=== PATIENT | female | born 1945 | race Caucasian/White ===

== ENCOUNTER 2025-02-15 05:50 | Day surgery (SDC) | payer MEDICARE, OTHER, SELFPAY ==
--- NOTE | 2025-02-12 06:40 | EKG_ITS ---
[facility] Test Date: 2025-02-12 Pat Name: KELSI BRISCOE Department: Room: - Gender: Female Dispatcher [employer]: KEVIN : 1945 Requested By: Mikhail Rodriguez Order Number: [id number] Reading MD: Mikhail Rodriguez Measurements Intervals [place] Rate: 55 P: 49 IA: 159 QRS: 105 QRSD: 78 T: 65 QT: 401 QTc: 386 Interpretive Statements SINUS BRADYCARDIA MARKED RIGHT AXIS DEVIATION [QRS AXIS > 100] LOW QRS VOLTAGE IN PRECORDIAL LEADS [QRS DEFLECTION < 1.0 mV IN CHEST LEADS] POSSIBLE RIGHT VENTRICULAR CONDUCTION DELAY [RSR (QR) IN V1/V2] POSSIBLE ANTERIOR MYOCARDIAL INFARCTION , PROBABLY OLD [30 ms Q WAVE IN V3/V4, OR R < 0.2 mV IN V4] No previous ECG available for comparison /[id number]
[2025-02-12 11:49] VITALS: BMI 38.9
[2025-02-12 13:45] LABS: Alanine Aminotransferase 29 U/L (10-49); Albumin, Serum 4.4 gm/dL (3.4-4.8); Albumin/Globulin Ratio 1.8 (1.2-2.2); Alkaline Phosphatase 58 U/L (46-116); Anion Gap 4 (7-16); Aspartate Amino Transferase 25 U/L (0-34); BUN/Creatinine Ratio 21 Ratio (12-20); Bilirubin,Total 0.7 mg/dL (0.3-1.2); Blood Urea Nitrogen 15 mg/dL (9-23); Calcium 9.6 mg/dL (8.3-10.6); Calcium (Corrected) 9.6 mg/dL (8.5-10.1); Carbon Dioxide 28.1 mMol/L (20.0-31.0); Chloride 105 mMol/L (98-107); Creatinine (Component) 0.7 mg/dL (0.6-1.3); Globulin 2.5 gm/dL (2.3-3.5); Glucose 87 mg/dL (74-106); Osmolality,Calculated 273 (275-295); Potassium 3.8 mMol/L (3.4-5.1); Sodium 137 mMol/L (136-145); Total Protein 6.9 gm/dL (5.7-8.2); eGFR > 60 See Note
--- NOTE | 2025-02-12 14:13 | SUR.PREOP ---
Cardiac records reviwed with Dr Rodriguez.
--- NOTE | 2025-02-14 15:06 | SUR.PREOP ---
Voice message left for pt to come in at 0600 tomorrow for surgery.
[2025-02-15] VITALS (8 sets, daily range): BP systolic 133–158; BP diastolic 63–98; PULSE 60–72; RESP 10–17; TEMP 36.5–37.1; O2SAT 94–99; BMI 40.1
[2025-02-15] MEDS: RINGERS LACTATED 1000 ML 1,000 ML 20 ML IV (07:01)
--- NOTE | 2025-02-15 07:43 | SUR.PREOP ---
Patient expressed gratitude for prayer before their procedure.
--- NOTE | 2025-02-15 10:18 | ESOP_ITS ---
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 There is a metal grommet tube posteriorly and inferiorly. The middle ear space was chronically inflamed but the ossicular chain was intact and mobile. The mastoid was very sclerotic with few air cells until deep into the mastoid cavity. Chorda tympani nerve and facial nerve both identified and preserved. Procedure Description Indications: This is a 79-year-old female with chronic ear drainage and pain. She also has hearing loss. CT scan documented chronic mastoiditis. Treatment options were discussed as well as surgical risk occluding bleeding infection hearing loss decreased sense of taste dizziness facial nerve paralysis. Patient understood these and wished to proceed. Anticipated outcomes were discussed as well. Primary goal of surgery was to resolve the infection. Patient was marked and shaved in the preoperative setting and transferred to the operative suite where she was anesthetized intubated and sterilely draped after placing the facial nerve monitoring electrodes in usual fashion. Timeout was p erformed. Postauricular area as well as external canal were injected with 1% lidocaine with 1 100,000 dilution epinephrine. Approximately 5 cc total were used. External canal was irrigated with warm saline solution and suction. The tympanostomy tube was removed. The margins of the myringotomy were prepped with the third millimeter hook. Posterior tympanomeatal flap was created and the tympanic membrane turned forward. The incudostapedial joint was visualized and found to be mobile. There is chronic inflammatory changes of all the middle ear mucosa. A portion of this was vaporized with the CO2 laser at a setting of 2 W. A postauricular incision was then made and anterior and posterior flaps created. A palva flap was created after harvesting some temporalis fascia. A posterior vascular strip was created earlier and when the ear was turned forward this was elevated and held up with the self-retaining retractors. Standard canal wall up mastoidectomy was then performed. The sigmoid sinus is identified posteriorly and a tegmen superiorly. Posterior canal wall was send and drilling was carried down through the sclerotic bone until the attic region was visualized. The horizontal canal was identified. The facial nerve was identified and stimulated at the second genu. There was no significant mucosal disease at the aditus region and no signs of cholesteatoma. Drilling was carried out until healthy air cells were reached. The mastoid cavity was then thoroughly irrigated with warm saline and suction. The graft was trimmed and brought into position and under microscopic visualization placed in an underlay fashion underneath the primary and got IV site. Surgifoam was placed in the middle ear as well as on top of the graft and tympanic membrane once returning it back to its normal position. The postauricular incision was then closed in a multilayer fashion with 4-0 Vicryl and Dermabond on the skin. The posterior vascular strip was ensured that it was in its correct position and then the external canal packed with Surgifoam along with double antibiotic ointment and then Adaptic and a sterile cottonball at the external meatus. Nerve monitoring electrodes were removed the patient was awakened and taken the recovery room in stable condition Anesthesia GETA Pathology / specimen None Estimated Blood Loss 10 Surgeon Lion Shelley DO Surgical Staff Operation Date: 02/15/25 08:15 Case Staff Anesthesiologist: Mikhail Rodriguez
--- NOTE | 2025-02-15 10:26 | SUR.PHASEI ---
pt arrived to PACU via gurney drowsy but arouses to voice, breathing unlabored, dressing to left ear clean, dry, and intact, report from Ralph PERAZA and Dr Rodriguez
--- NOTE | 2025-02-15 10:50 | SUR.PHASEI ---
pt able to tolerate ice chips without difficulty swallowing or n/v
[2025-02-15] MEDS: ONDANSETRON INJ 2 MG/ML INJ 2 ML 4 MG IV (11:19)
[2025-02-15] MEDS: ACETAMINOPHEN 325 MG TABLET 650 MG PO (11:20)
--- NOTE | 2025-02-15 11:36 | SUR.PHASEII ---
pt awake, alert, able to follow commands, breathing unlabored, dressing to left ear with small amount of pinkish red drainage and changed with spouse present for teaching purposes, discharge instructions given with spouse present, all questions answered, pt able to dress self with assistance and ambulate with steady gait to wheelchair, pt discharged via wheelchair with all belongings and copies of discharge paperwork.
--- NOTE | 2025-02-19 13:25 | PD.ANESPROG ---
Documentation for date of: 02/19/25 POST ANESTHESIA NOTE: Patient had GETA for L tympanomastoidectomy on . I just called her number for follow up but no answer. Mikhail Rodriguez MD Anesthesia Progress Note Progress Note Most recent Vital Signs: Last Vital Signs Temp 97.9 F 02/15/25 11:25 Pulse 60 02/15/25 11:11 Resp 15 02/15/25 11:25 BP 133/71 H 02/15/25 11:25 Pulse Ox 95 02/15/25 11:25 O2 Flow Rate 2 02/15/25 10:41
== END 2025-02-15 11:36 | disposition home or self-care (01) ==
PROVIDERS: Anesthesiology; PCP Physician Assistant Medical; Referring Provider Otolaryngology; Visit Provider Otolaryngology
PROC: (CPT 69502; principal; 2025-02-15 08:00)
DX: H91.92 Unspecified hearing loss, left ear (principal); H70.12 Chronic mastoiditis, left ear; Z01.810 Encounter for preprocedural cardiovascular examination
CPT/HCPCS: 69643; 36415; 80053; 93005; A4217; A4649; J0171; J0690; J1100; J2371; J2405; J2704; J2765; J3010; J3473; J3490; J7040; J7120; A9270; J1805